=== PATIENT | female | born 1990 | race Caucasian/White ===

== ENCOUNTER 2019-07-20 23:19 | Emergency (ER) | payer OTHER ==
[~2019-07-20] VITALS: Ht 157.5 cm; Wt 59.1 kg
[2019-07-20] MEDS ORDERED: NAPR-1024 PO (23:50)
[2019-07-21 02:24] VITALS: BP 102/65
[2019-07-21] MEDS ORDERED: IBUPROFEN 400 MG TABLET PO ONE (02:45)
[2019-07-21] MEDS ORDERED: ACETAMINOPHEN 325 MG TABLET PO ONE (02:45)
[2019-07-21] MEDS ORDERED: LIDOCAINE 5% TRANSDERMAL PATCH TD ONE (02:45)
[2019-07-21] MEDS ORDERED: ACETAMINOPHEN 500 MG TABLET PO ONE (03:00)
[2019-07-21] MEDS ORDERED: DIAZEPAM 2 MG TABLET PO ONE (03:00)
== END 2019-07-21 03:38 | disposition home or self-care (01) ==
LOC: EMS 23:19
DX: M54.2 Cervicalgia (principal); M54.9 Dorsalgia, unspecified